=== PATIENT | female | born 1995 | race American Indian/Alaskan Native ===

== ENCOUNTER 2019-08-08 22:15 | Emergency (ER) | payer SELFPAY ==
--- NOTE | 2019-08-08 22:26 | Emergency Department Report ---
Blank Doc - Documentation Documentation: 24-year-old female that presents with URI symptoms. This initial assessment/diagnostic orders/clinical plan/treatment(s) is/are subject to change based on patient's health status, clinical progression and re- assessment by fellow clinical providers in the ED. Further treatment and workup at subsequent clinical providers discretion. Patient/guardians urged not to elope from the ED as their condition may be serious if not clinically assessed and managed. Initial orders include: 1- Patient sent to [facility] for further evaluation and treatment 2- CXR 3- flu swab
--- NOTE | 2019-08-08 22:56 | XRay Report ---
CHEST 2 VIEWS INDICATION: cough. COMPARISON: None. FINDINGS: Support devices: None. Heart: Within normal limits. Lungs/Pleura: No acute air space or interstitial disease. No significant pleural effusion. IMPRESSION: No acute findings. Signer Name: Artis Meade MD Signed: 08/08/2019 10:51 PM Workstation Name: [id number]
--- NOTE | 2019-08-08 23:44 | Emergency Department Report ---
- General Chief Complaint: Upper Respiratory Infection Stated Complaint: FLU SX Time Seen by Provider: 08/08/19 22:25 Source: patient Mode of arrival: Ambulatory Limitations: No Limitations - History of Present Illness Initial Comments: Patient is a 24-year-old female presents emergency room with complaints of URI symptoms that began 2 days ago. She has associated nasal congestion, rhinorrhea, headache, dry cough, generalized body aches, fever, generalized weakness. she states her temperature was 101 prior to arrival and she took Tylenol. She denies any shortness of breath, productive cough, vomiting, diarrhea, any other symptoms. She states she has a past medical history of asthma. Patient states she has an allergy to penicillin. She states her last mental cycle was July 14. - Related Data Previous Rx's Medication Instructions Recorded Last Taken Type Oseltamivir [Tamiflu] 75 mg PO BID 5 Days #10 cap 08/08/19 Unknown Rx Allergies Allergy/AdvReac Type Severity Reaction Status Date / Time Penicillins Allergy Hives Verified 08/08/19 22:26 ED Review of Systems ROS: Stated complaint: FLU SX Other details as noted in HPI Comment: All other systems reviewed and negative ED Past Medical Hx - Past Medical History Previous Medical History?: Yes Hx Asthma: Yes - Surgical History Past Surgical History?: Yes Additional Surgical History: Left knee - Social History Smoking Status: Never Smoker Substance Use Type: Marijuana - Medications Home Medications: Home Medications Medication Instructions Recorded Confirmed Last Taken Type Oseltamivir [Tamiflu] 75 mg PO BID 5 Days #10 cap 08/08/19 Unknown Rx ED Physical Exam - General Limitations: No Limitations General appearance: alert, in no apparent distress - Head Head exam: Present: atraumatic, normocephalic - Eye Eye exam: Present: normal appearance - ENT ENT exam: Present: normal orophraynx, mucous membranes moist, other (clear nasal drainage) - Respiratory Respiratory exam: Present: normal lung sounds bilaterally. Absent: respiratory distress, wheezes, rales, rhonchi, stridor, chest wall tenderness, accessory muscle use, decreased breath sounds, prolonged expiratory - Cardiovascular Cardiovascular Exam: Present: regular rate, normal rhythm, normal heart sounds. Absent: systolic murmur, diastolic murmur, rubs, gallop - Neurological Exam Neurological exam: Present: alert, oriented X3 - Psychiatric Psychiatric exam: Present: normal affect, normal mood - Skin Skin exam: Present: warm, dry, intact ED Course Vital Signs 08/08/19 08/08/19 22:19 23:59 Temperature 97.8 F 97.9 F Pulse Rate 55 L 55 L Respiratory 18 18 Rate Blood Pressure 119/80 Blood Pressure 120/66 [Left] O2 Sat by Pulse 100 100 Oximetry ED Medical Decision Making - Radiology Data Radiology results: report reviewed CHEST 2 VIEWS INDICATION: cough. COMPARISON: None. FINDINGS: Support devices: None. Heart: Within normal limits. Lungs/Pleura: No acute air space or interstitial disease. No significant pleural effusion. IMPRESSION: No acute findings. Signer Name: Artis Meade MD Signed: 08/08/2019 10:51 PM Workstation Name: [id number] Transcribed By: ART Dictated By: Artis Meade MD Electronically Authenticated By: Artis Meade MD Signed Date/Time: 08/08/192250 DD/ 50 TD/TT: - Medical Decision Making Patient is a 24-year-old female presents emergency room with complaints of URI symptoms that began 2 days ago. She has associated nasal congestion, rhinorrhea, headache, dry cough, generalized body aches, fever, generalized weakness. she states her temperature was 101 prior to arrival and she took Tylenol. She denies any shortness of breath, productive cough, vomiting, diarrhea, any other symptoms. She states she has a past medical history of asthma. Patient states she has an allergy to penicillin. She states her last mental cycle was July 14. VSS. on exam:clear nasal drainage, normal oropharynx, normal breath sounds bilaterally. CXR: No acute findings. Patient has clinical signs and symptoms of influenza. Patient's symptoms have been within 48 hours. Will start patient on Tamiflu. Discussed with patient that Tamiflu only shorten her symptoms. Discussed supportive treatment with patient. advised pt to Please take medication as prescribed. May use Tylenol or ibuprofen [id number] as needed for a temperature of 100.4 or grater. Please increase your fluid intake over the next several days. It is very important to stay well-hydrated. May use a humidifier, drink warm tea, eat soup broths, warm saltwater gargles, rest. Follow up with a primary care doctor in 3 days for reexamination. Return to the emergency room for any new or worsening symptoms. - Differential Diagnosis PNA, URI, viral syndrome, influenza, pharyngitis, sinusitis, otitis Critical care attestation.: If time is entered above; I have spent that time in minutes in the direct care of this critically ill patient, excluding procedure time. ED Disposition Clinical Impression: Influenza Disposition: DC-01 TO HOME OR SELFCARE Is pt being admited?: No Does the pt Need Aspirin: No Condition: Stable Instructions: Influenza (ED) Additional Instructions: Please take medication as prescribed. May use Tylenol or ibuprofen [id number] as needed for a temperature of 100.4 or grater. Please increase your fluid intake over the next several days. It is very important to stay well-hydrated. May use a humidifier, drink warm tea, eat soup broths, warm saltwater gargles, rest. Follow up with a primary care doctor in 3 days for reexamination. Return to the emergency room for any new or worsening symptoms. Prescriptions: Oseltamivir [Tamiflu] 75 mg PO BID 5 Days #10 cap Referrals: [facility] [Provider Group] - 2-3 Days Forms: Work/School Release Form(ED) Time of Disposition: 23:41 Print Language: ALBANIAN
[2019-08-09 00:28] VITALS: BP 120/66
== END 2019-08-09 00:18 | disposition home or self-care (01) ==
LOC: ED 22:15
DX: J11.1 Influenza due to unidentified influenza virus with other respiratory manifestations (principal); J45.909 Unspecified asthma, uncomplicated; F12.10 Cannabis abuse, uncomplicated; Z88.0 Allergy status to penicillin
CPT/HCPCS: 71046